=== PATIENT | male | born 1935 | race African-American/Black ===

== ENCOUNTER 2016-02-23 11:03 | Inpatient (IN) ==
--- NOTE | 2016-02-23 11:30 | Emergency Department Note ---
Disposition Clinical Impression: Syncope, Unresponsive episode Disposition: Admitted As Inpatient Condition: Good [facility] Care Provider[facility] - Forms: ED Satisfaction Letter Time of Disposition: 13:25 Syncope HPI - General Chief Complaint: ED Syncope Stated Complaint: Syncopal Episode Time Seen by Provider: 02/23/16 11:28 Source: patient, EMS Mode of arrival: EMS Limitations: no limitations Nursing Notes Reviewed: Yes Vital Signs Reviewed: Yes - History of Present Illness HPI Narrative: This is an 80-year-old male who was being seen at the [facility] and had a syncopal episode in the car. It apparently took about 3 people to get patient out of the car and he had shallow respirations and took a few minutes to come around. Patient is completely asymptomatic at this time. Patient denies any chest pain or shortness of breath. Patient apparently had a syncopal episode in the past. Patient has an extensive medical history. Patient did have a CT of his head and a chest x-ray performed at the [facility] that were negative. 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 - Related Data Home Medications Medication Instructions Recorded Confirmed Aspirin 81 mg PO DAILY #0 10/23/14 02/23/16 Cholecalciferol (Vitamin D3) 2,000 unit PO DAILY #0 10/23/14 02/23/16 [Vitamin D] Latanoprost [Xalatan] 1 drop BOTH EYES HS #0 10/23/14 02/23/16 Phenytoin ER [Dilantin ER] 100 mg PO BID #0 10/23/14 02/23/16 Ranitidine HCl [Acid Asphalt Paving Superintendent] 150 mg PO DAILY #0 10/23/14 02/23/16 Sennosides [Senna] 8.6 mg PO HS #0 10/23/14 02/23/16 Brimonidine 0.2% [Alphagan] 1 drop BOTH EYES BID 03/27/15 02/23/16 Ferrous Sulfate 325 mg PO DAILY 05/27/15 02/23/16 Acetaminophen [Tylenol] 975 mg PO TID PRN 02/23/16 02/23/16 Bisacodyl [Dulcolax] 10 mg RC Q48H PRN 02/23/16 02/23/16 Isosorbide MONOnitrate (24 HR) 45 mg PO DAILY 02/23/16 02/23/16 [Imdur] Levothyroxine [Synthroid] 37.5 mcg PO DAILY 02/23/16 02/23/16 Methyl Salicylate/Menthol 1 appl TP BID PRN 02/23/16 02/23/16 [Arthritis Hot Pain Relief Crm] Metoprolol XL (24 HR) Succ [Toprol 75 mg PO BID 02/23/16 02/23/16 XL] Simvastatin [Zocor] 20 mg PO HS 02/23/16 02/23/16 Previous Rx's Medication Instructions Recorded Clopidogrel [Plavix] 75 mg PO DAILY #30 tablet 05/30/15 Ranolazine [Ranexa] 500 mg PO BID #60 tab.er.12h 05/30/15 Allergies Allergy/AdvReac Type Severity Reaction Status Date / Time acetaminophen [From Vicodin] AdvReac Rash Verified 02/23/16 11:20 Enoxaparin [From Lovenox] AdvReac Confusion Verified 02/23/16 11:20 hydrocodone [From Vicodin] AdvReac Rash Verified 02/23/16 11:20 All systems ED: reviewed and negative except as stated. Constitutional: Denies: fever, chills, weakness, weight change Eyes: Denies: eye pain, eye discharge, vision change ENT ED: Denies: ear pain, throat pain, dental pain, hearing loss, epistaxis, congestion, dysphagia Cardiovascular: Reports: syncope. Denies: chest pain, palpitations, dyspnea on exertion, edema Respiratory: Denies: cough, dyspnea, wheezes, hemoptysis, stridor Gastrointestinal: Denies: abdominal pain, nausea, vomiting, diarrhea, constipation, hematemesis, melena, hematochezia Genitourinary: Denies: urgency, dysuria, frequency, hematuria Musculoskeletal: Denies: back pain, neck pain, arthralgia, myalgia Integumentary: Denies: rash, abrasion, lesions Neurological: Denies: headache, weakness, numbness, paresthesias, confusion, abnormal gait, vertigo Psychiatric: Denies: anxiety, depression, suicidal thoughts, homicidal thoughts , auditory hallucinations, visual hallucinations Endocrine: Denies: fatigue Hematological/Lymphatic: Denies: easy bleeding, easy bruising Allergic/Immunologic: Denies: facial swelling, urticaria Past Medical History - Past Medical History Attestation: Yes The following information was validated with the patient. Source: patient Medical history: Reports: CHF, coronary artery disease, DVT, diabetes, GERD, hyperlipidemia, seizures, thyroid disease Surgical history: Reports: orthopedic, other, other Psychiatric history: Reports: no psych history - Social History Smoking Status: Former smoker Smokeless Tobacco Status: No Alcohol use: Reports: none Drug use: Reports: none Physical Exam - General Limitations: no limitations General appearance: alert, in no apparent distress - Head Head exam: atraumatic, normocephalic, normal inspection - Eye Eye exam: Present: normal appearance, PERRL, EOMI - ENT ENT exam: normal exam, normal oropharynx, mucous membranes moist - Expanded ENT Exam External ear exam: Present: normal external inspection Mouth exam: Present: normal external inspection Teeth exam: Present: normal inspection Throat exam: Present: normal inspection - Neck Neck exam: Present: normal inspection, full ROM, trachea midline - Chest Chest inspection: Present: normal inspection, symmetric chest wall rise - Respiratory Respiratory exam: Present: normal lung sounds bilaterally - Cardiovascular Cardiovascular exam: Present: regular rate, normal rhythm, normal heart sounds - Abdominal Exam Abdominal exam: Present: soft, Non-Tender. Absent: tenderness, distention, guarding, rebound, rigidity - Extremities Exam Extremities exam: Present: normal inspection, full ROM. Absent: tenderness, pedal edema - Expanded Upper Extremity Exam Shoulder exam: Present: normal inspection, full ROM Arm exam: Present: normal inspection, full ROM Elbow exam: Present: normal inspection, full ROM Forearm/Wrist exam: Present: normal inspection, full ROM Hand exam: Present: normal inspection, full ROM Vascular exam: Normal: capillary refill, radial pulse - Expanded Lower Extremity Exam Hip/Pelvis exam: Present: normal inspection, full ROM Upper leg exam: Present: normal inspection, full ROM Knee exam: Present: normal inspection, full ROM Lower leg exam: Present: normal inspection, full ROM Ankle exam: Present: normal inspection, full ROM Foot/toe exam: Present: normal inspection, full ROM Neurovascular/Tendon exam: Absent: motor deficit, sensory deficit, tendon deficit - Back Exam Back exam: Present: normal inspection, full ROM. Absent: tenderness - Neurological Exam Neurological exam: Present: alert, oriented X3 - Expanded Neurological Exam Patient oriented to: Present: person, place, time Speech: Absent: fluid speech (pt does have a speech abnormality that is not new) Cranial nerves: EOM function (II, III, IV, ): Normal, facial sensation (V): Normal, facial palsy (VII): Normal, spinal accessory function (XI): Normal, tongue deviation (XII): Normal Motor strength - LUE: 5/5 Motor strength - RUE: 5/5 Motor strength - LLE: 5/5 Motor strength - RLE: 5/5 Sensory exam upper extremity: light touch: Normal Sensory exam lower extremity: light touch: Normal Coma Scale Eye Opening: Spontaneous Coma Scale Motor Response: Obeys Commands Coma Scale Verbal Response: Oriented Coma Scale Total: 15 - Psychiatric Psychiatric exam: Present: normal affect, normal mood - Skin Skin exam: Present: warm, dry, intact, normal color Course - Consultations Consultation #1: I spoke with Dr. Omar ruano to admit. Time: 13:51 Vital Signs Temperature 97.6 F 02/23/16 11:09 Pulse Rate 58 02/23/16 11:09 Respiratory Rate 16 02/23/16 11:09 Blood Pressure 137/92 02/23/16 11:09 O2 Sat by Pulse Oximetry 98 02/23/16 11:09 Temperature 97.6 F 02/23/16 11:09 Pulse Rate 54 02/23/16 12:22 Respiratory Rate 18 02/23/16 12:22 Blood Pressure 143/91 02/23/16 12:22 O2 Sat by Pulse Oximetry 100 02/23/16 12:22 Oxygen Delivery Oxygen Delivery Room Air Syncope - Medical Records Medical records reviewed: Yes I reviewed the patient's medical records. - Lab Data Lab results reviewed: Yes I reviewed the patient's lab results. Result diagrams: 02/23/16 11:55 02/23/16 11:55 Lab Results 02/23/16 02/23/16 02/23/16 Range/Units 11:55 11:55 11:55 WBC (4.3-11.1) K/mcL RBC (4.19-5.50) M/mcL Hgb (12.9-16.9) g/dL Hct (37.5-50.1) % MCV (83.0-100.0) fL MCH (28.0-33.3) pg MCHC (31.6-35.5) g/dL RDW (11.5-14.5) % Plt Count (140-400) K/mcL MPV (9.4-12.4) fL Immature Gran % (0-4) % Seg Neutrophils % % Lymphocytes % % Monocytes % % Eosinophils % % Basophils % % Neutrophils # (1.6-8.9) K/mcL Lymphocytes # (0.6-4.6) K/mcL Monocytes # (0.0-1.3) K/mcL Eosinophils # (0.0-0.6) K/mcL Basophils # (0.0-0.2) K/mcL PT (9.4-12.1) Seconds INR APTT 27.9 (26.0-36.0) Seconds Sodium 140 (136-145) mEq/L Potassium 4.6 H (3.5-4.5) mEq/L Chloride 106 (98-109) mEq/L Carbon Dioxide 29 (19-29) mEq/L BUN 22 (8-26) mg/dL Creatinine 1.37 H (0.72-1.25) mg/dL Est GFR ( Amer) > 60 (> 60) Est GFR (Non-Af Amer) 50 L (> 60) BUN/Creatinine Ratio 16 (6-26) Glucose 88 (70-99) mg/dL Calculated Osmolality 293 (280-300) Calcium 9.2 (8.6-10.8) mg/dL Troponin I (0-0.03) ng/mL B-Natriuretic Peptide 189 H (0-100) pg/mL TSH (0.350-4.840) mcIU/mL 02/23/16 02/23/16 02/23/16 Range/Units 11:55 11:55 11:55 WBC 7.9 (4.3-11.1) K/mcL RBC 4.03 L (4.19-5.50) M/mcL Hgb 11.9 L (12.9-16.9) g/dL Hct 36.7 L (37.5-50.1) % MCV 91.1 (83.0-100.0) fL MCH 29.5 (28.0-33.3) pg MCHC 32.4 (31.6-35.5) g/dL RDW 13.3 (11.5-14.5) % Plt Count 153 (140-400) K/mcL MPV 11.4 (9.4-12.4) fL Immature Gran % 0.3 (0-4) % Seg Neutrophils % 73.7 % Lymphocytes % 18.0 % Monocytes % 6.6 % Eosinophils % 1.1 % Basophils % 0.3 % Neutrophils # 5.9 (1.6-8.9) K/mcL Lymphocytes # 1.4 (0.6-4.6) K/mcL Monocytes # 0.5 (0.0-1.3) K/mcL Eosinophils # 0.1 (0.0-0.6) K/mcL Basophils # 0.0 (0.0-0.2) K/mcL PT 14.4 H (9.4-12.1) Seconds INR 1.3 APTT (26.0-36.0) Seconds Sodium (136-145) mEq/L Potassium (3.5-4.5) mEq/L Chloride (98-109) mEq/L Carbon Dioxide (19-29) mEq/L BUN (8-26) mg/dL Creatinine (0.72-1.25) mg/dL Est GFR ( Amer) (> 60) Est GFR (Non-Af Amer) (> 60) BUN/Creatinine Ratio (6-26) Glucose (70-99) mg/dL Calculated Osmolality (280-300) Calcium (8.6-10.8) mg/dL Troponin I 0.01 (0-0.03) ng/mL B-Natriuretic Peptide (0-100) pg/mL TSH (0.350-4.840) mcIU/mL 02/23/16 Range/Units 11:55 WBC (4.3-11.1) K/mcL RBC (4.19-5.50) M/mcL Hgb (12.9-16.9) g/dL Hct (37.5-50.1) % MCV (83.0-100.0) fL MCH (28.0-33.3) pg MCHC (31.6-35.5) g/dL RDW (11.5-14.5) % Plt Count (140-400) K/mcL MPV (9.4-12.4) fL Immature Gran % (0-4) % Seg Neutrophils % % Lymphocytes % % Monocytes % % Eosinophils % % Basophils % % Neutrophils # (1.6-8.9) K/mcL Lymphocytes # (0.6-4.6) K/mcL Monocytes # (0.0-1.3) K/mcL Eosinophils # (0.0-0.6) K/mcL Basophils # (0.0-0.2) K/mcL PT (9.4-12.1) Seconds INR APTT (26.0-36.0) Seconds Sodium (136-145) mEq/L Potassium (3.5-4.5) mEq/L Chloride (98-109) mEq/L Carbon Dioxide (19-29) mEq/L BUN (8-26) mg/dL Creatinine (0.72-1.25) mg/dL Est GFR ( Amer) (> 60) Est GFR (Non-Af Amer) (> 60) BUN/Creatinine Ratio (6-26) Glucose (70-99) mg/dL Calculated Osmolality (280-300) Calcium (8.6-10.8) mg/dL Troponin I (0-0.03) ng/mL B-Natriuretic Peptide (0-100) pg/mL TSH 4.464 (0.350-4.840) mcIU/mL - Radiology Data Radiology results reviewed: Yes I reviewed the patient's radiology results. - EKG Data EKG attestation: Yes I reviewed and interpreted this EKG. EKG shows normal: sinus rhythm Rate: bradycardia (56) Rhythm: NSR [place]/QRS: left axis deviation T wave inversions noted in: v4, v5, v6 Interpretation: nonspecific ST-T wave changes
[2016-02-23 12:06] LABS: Basophils % 0.3 %; Eosinophils # 0.1 K/mcL (0.0-0.6); Eosinophils % 1.1 %; Hematocrit 36.7 % (37.5-50.1); Hemoglobin 11.9 g/dL (12.9-16.9); Immature Granulocytes % 0.3 % (0-4); Lymphocytes # 1.4 K/mcL (0.6-4.6); Mean Corpuscular HGB Conc 32.4 g/dL (31.6-35.5); Mean Corpuscular Hemoglobin 29.5 pg (28.0-33.3); Mean Corpuscular Volume 91.1 fL (83.0-100.0); Mean Platelet Volume 11.4 fL (9.4-12.4); Monocytes # 0.5 K/mcL (0.0-1.3); Monocytes % 6.6 %; Neutrophils # 5.9 K/mcL (1.6-8.9); Platelet Count 153 K/mcL (140-400); Red Blood Count 4.03 M/mcL (4.19-5.50); Red Cell Distribution Width 13.3 % (11.5-14.5); Segmented Neutrophils % 73.7 %
[2016-02-23 12:12] LABS: INR 1.3; Prothrombin Time 14.4 Seconds (9.4-12.1)
[2016-02-23 12:18] LABS: BUN/Creatinine Ratio 16 (6-26); Blood Urea Nitrogen 22 mg/dL (8-26); Calcium 9.2 mg/dL (8.6-10.8); Carbon Dioxide 29 mEq/L (19-29); Chloride 106 mEq/L (98-109); Glucose 88 mg/dL (70-99); Osmolality,Calculated 293 (280-300); Potassium 4.6 mEq/L (3.5-4.5); Sodium 140 mEq/L (136-145); eGFR For African Americans > 60 (> 60); eGFR For Non-African Americans 50 (> 60)
[2016-02-23] MEDS ORDERED: Ondansetron 4 MG/2 ML VIAL IVP PRN (15:17)
[2016-02-23] MEDS ORDERED: *HR* Dextrose 50 % in Water (Syg) 50 ML SYRINGE IVP PRN (15:17)
[2016-02-23] MEDS ORDERED: Dextrose Gel 15 GM PO PRN ×2 (15:17)
[2016-02-23] MEDS ORDERED: D5% in Water 1,000 ML IV PRN (15:17)
[2016-02-23] MEDS ORDERED: Naloxone 0.4 MG/ML INJ IVP PRN (15:17)
[2016-02-23] MEDS ORDERED: Methyl Salicylate/Menthol 28 GM TUBE TP PRN (15:24)
[2016-02-23] MEDS ORDERED: Acetaminophen 325 MG TABLET PO PRN (15:24)
[2016-02-23] MEDS ORDERED: Bisacodyl 10 MG RECTAL SUPPOSITORY RC PRN (15:24)
[2016-02-23] MEDS ORDERED: Sennosides/Docusate Sodium TABLET PO PRN (15:27)
[2016-02-23 15:29] LABS: Bilirubin,Urine Small (Negative); Blood,Urine Negative (Negative); Clarity,Urine Clear (Clear); Color,Urine Yellow (Yellow); Glucose,Urine (UA) Normal (Normal); Ketones,Urine Trace mg/dL (Negative); Leukocyte Esterase,Urine Negative (Negative); Nitrite,Urine Negative (Negative); Protein,Urine Trace mg/dL (Neg-Trace); Specific Gravity,Urine 1.024 (1.010-1.025); Urobilinogen,Urine Normal (Normal)
[2016-02-23 15:34] LABS: Bacteria,Urine None Seen per hpf (None-Few); Hyaline Casts,Urine None Seen per lpf (None-Few); RBC,Urine 0-3 per hpf (0-3); Squamous Epithelial Cell,Urine Many per lpf (None-Few); WBC,Urine 0-3 per hpf (0-3)
--- NOTE | 2016-02-23 15:40 | Internal Med History&Physical ---
<Artem Kennedy - Last Filed: 02/23/16 15:28> Date of Encounter: 02/23/16 Time of Encounter: 14:45 Assessment and Plan (1) Syncope Current visit: Yes Status: Acute [facility]. No reports of convulsions, incontinence, tongue biting, or postictal state. Patient has no reports of recent illness, no shortness of breath, no chest pain, no palpitations. Irregular rhythm/skipped beats auscultated on exam. Concern for cardiac etiology of patient's syncope. Obtain bilateral carotid Doppler Obtain echocardiogram Continue telemetry We will check magnesium Continue home medications Qualifiers: Syncope type: unspecified Qualified Code(s): R55 - Syncope and collapse (2) Seizure disorder Current visit: No Status: Chronic Reported prior episode of seizure. Family states involved him having CPR, unsure of the significance of this event. Patient on phenytoin at home. Continue phenytoin (3) Diabetes type 2, controlled Current visit: Yes Status: Acute Before meals at bedtime sliding scale low-dose insulin Qualifiers: Diabetes mellitus complication status: without complication Diabetes mellitus exterminator termite insulin use: without fdc use Qualified Code(s): E11.9 - Type 2 diabetes mellitus without complications (4) History of cerebrovascular accident Current visit: Yes Status: Acute Residual left-sided leg weakness. No current signs of CVA. We will continue to monitor (5) CAD (coronary artery disease) Current visit: No Status: Acute Continue home medications Qualifiers: Coronary Disease-Associated Artery/Lesion type: [place] artery [place] vs. transplanted heart: [place] heart Associated angina: with unspecified angina Qualified Code(s): I25.119 - Atherosclerotic heart disease of [place] coronary artery with unspecified angina pectoris (6) GERD (gastroesophageal reflux disease) Current visit: Yes Status: Acute Patient on ranitidine at home Continue home medication Qualifiers: Esophagitis presence: without esophagitis Qualified Code(s): K21.9 - Gastro -esophageal reflux disease without esophagitis (7) Hypothyroidism Current visit: Yes Status: Acute Continue home medication Qualifiers: Hypothyroidism type: unspecified Qualified Code(s): E03.9 - Hypothyroidism , unspecified (8) Hypertension Current visit: No Status: Chronic We will hold patient's metoprolol 2/2 patient bradycardia Continue other home meds Continue monitor Qualifiers: Hypertension type: essential hypertension Qualified Code(s): I10 - Essential (primary) hypertension (9) DVT prophylaxis Current visit: No Status: Acute EPCDs Internal Medicine - H&P: HPI Chief complaint: Syncope Admitted From: Home Plans for Post Hospital Care: Home History of present illness: Mr. Lewis is a 80 year old male with prior medical history of peripheral neuropathy, prior CVA, open-angle glaucoma, GERD, seizure disorder, CAD, osteoporosis, type 2 diabetes, and benign hypertension with history Hannah after having an episode of unresponsiveness at the [facility] earlier today. He was in the vehicle outside the [facility] going to a doctor's appointment with a friend of his when he had an episode of apparent syncope. There is no report of convulsive movements, no report of incontinence, no tongue biting, patient does not report any post ictal state. An well prior to this event, but no recent reports of illness. He denies chest pain, denies palpitations, denies shortness of breath leading up to this event today. He is reported to have a seizure disorder for which he takes phenytoin, but she quit the family they report that the one prior seizure she had resulted in him getting CPR, never not able to elaborate more on this. Both he and his family state that this has occurred 4-5 times in the past, most recent of which was last November and December, and every time he is worked up for no cause is identified. Past Med Surg Social Fam HX - Past Medical History Medical history: CHF, coronary artery disease, DVT, diabetes, GERD, hyperlipidemia, seizures, thyroid disease Psychiatric history: no psych history - Past Surgical History Surgical History: orthopedic, other, other - Social History Smoking Status: Former smoker Smokeless Tobacco Status: No Alcohol use: none Drug use: none - Family History Father Living Status: Mother Living Status: Hx Family Cancer: Yes Internal Medicine - H&P: Meds Aspirin 81 mg PO DAILY #0 10/23/14 [History] Cholecalciferol (Vitamin D3) [Vitamin D] 2,000 unit PO DAILY #0 10/23/14 [ History] Latanoprost [Xalatan] 1 drop BOTH EYES HS #0 10/23/14 [History] Phenytoin ER [Dilantin ER] 100 mg PO BID #0 10/23/14 [History] Ranitidine HCl [Acid Shipping Track Supervisor] 150 mg PO DAILY #0 10/23/14 [History] Sennosides [Senna] 8.6 mg PO HS #0 10/23/14 [History] Brimonidine 0.2% [Alphagan] 1 drop BOTH EYES BID 03/27/15 [History] Ferrous Sulfate 325 mg PO DAILY 05/27/15 [History] Clopidogrel [Plavix] 75 mg PO DAILY #30 tablet 05/30/15 [Rx] Ranolazine [Ranexa] 500 mg PO BID #60 tab.er.12h 05/30/15 [Rx] Acetaminophen [Tylenol] 975 mg PO TID PRN 02/23/16 [History] Bisacodyl [Dulcolax] 10 mg RC Q48H PRN 02/23/16 [History] Isosorbide MONOnitrate (24 HR) [Imdur] 45 mg PO DAILY 02/23/16 [History] Levothyroxine [Synthroid] 37.5 mcg PO DAILY 02/23/16 [History] Methyl Salicylate/Menthol [Arthritis Hot Pain Relief Crm] 1 appl TP BID PRN 08/03 [History] Metoprolol XL (24 HR) Succ [Toprol XL] 75 mg PO BID 02/23/16 [History] Simvastatin [Zocor] 20 mg PO HS 02/23/16 [History] Allergies acetaminophen [From Vicodin] Adverse Reaction (Verified 02/23/16 11:20) Rash Enoxaparin [From Lovenox] Adverse Reaction (Verified 02/23/16 11:20) Confusion hydrocodone [From Vicodin] Adverse Reaction (Verified 02/23/16 11:20) Rash All Systems PM: A 10-system review of systems was performed and is negative for pertinent findings except as documented above in the HPI. - Constitutional Constitutional: no chills, no fever(s), no night sweats - EENT Eyes: no change in vision, no discharge, no pain, no photophobia Nose, mouth and throat: no dysphagia, no nasal discharge, no neck pain, no sore throat - Cardiovascular Cardiovascular ROS IM: syncope, no chest pain, no diaphoresis, no dyspnea, no irregular heart rhythm, no lightheadedness, no palpitations - Respiratory Respiratory: no cough, no dyspnea, no wheezing, no excessive phlegm production - Gastrointestinal Gastrointestinal: no abdominal pain, no diarrhea, no hematemesis, no hematochezia, no melena, no nausea, no vomiting - Musculoskeletal Musculoskeletal ROS IM: other (Pain in left lower extremity), no numbness, no tingling - Integumentary Integumentary IM: no rash, no unusual bruising - Neurological Neurological ROS: weakness (In left lower extremity), no confusion, no convulsions, no focal weakness, no numbness, no tingling, no tremor(s) - Hematologic/Lymphatic Hematologic/Lymphatic: no easy bruising - Constitutional Vitals: Temp Pulse Resp BP Pulse Ox 97.6 F 87 16 153/101 97 02/23/16 11:09 02/23/16 14:08 02/23/16 14:40 02/23/16 14:40 02/23/16 14:08 General appearance: Present: cooperative, A&O X 3, pleasant, no acute distress, answers questions appropriately - Head Head exam: Present: atraumatic, normocephalic - Eye Eye exam: Present: PERRL, conjuntiva pink, sclera anicteric Pupils: Present: PERRL - Neck Neck exam general surgery: Present: supple, trachea midline - Respiratory Respiratory exam: Present: CTAB. Absent: accessory muscle use, rales, rhonchi, wheezes - Cardiovascular Cardiovascular exam: Present: RRR, +S1, +S2. Absent: diastolic murmur, gallop, rubs, systolic murmur - GI/Abdominal GI/Abdominal exam: Present: normal bowel sounds, soft, no peritoneal signs. Absent: distended, tenderness - Extremities Exam Extremities exam: Present: warm, radial pulses palpable and symetrical. Absent : calf tenderness, cyanotic, pedal edema - Neurological Exam Neurological exam: Present: alert, CN II-XII intact, oriented X3, no focal deficits. Absent: facial droop, speech deficit - Skin Skin exam: Present: dry, intact Internal Med - H&P Results - Labs CBC & Chem 7: 02/23/16 11:55 02/23/16 11:55 <Blayne Shah - Last Filed: 02/23/16 18:21> Date of Encounter: 02/23/16 Internal Medicine - H&P: HPI History of present illness: Mr. Lewis is a 80 year old male All Systems PM: A 10-system review of systems was performed and is negative for pertinent findings except as documented above in the HPI. - Constitutional Vitals: Temp Pulse Resp BP Pulse Ox 97.6 F 58 16 161/71 100 02/23/16 16:37 02/23/16 16:37 02/23/16 16:37 02/23/16 16:37 02/23/16 16:37 Internal Med - H&P Results - Labs CBC & Chem 7: 02/23/16 11:55 02/23/16 11:55 Labs: Cardiac Enzymes 02/23/16 Range/Units 15:50 Troponin I 0.00 (0-0.03) ng/mL - Attending Attestation I examined this patient and my medical decision-making was reviewed with the LOCKSTITCHER/PA/Advanced Practice Nurse/Resident Physician. I agree with the documented findings, disposition and treatment plan as described by Dr. Kennedy except to the extent set forth below. Admitted due to syncope, will monitor in telemetry and obtain an echo. Resume home meds. D/W patient.
[2016-02-23 16:56] LABS: Amphetamine Screen,Urine Negative ng/mL (Cutoff=1000); Barbiturate Screen,Urine Negative ng/mL (Cutoff=200); Benzodiazepines Screen,Urine Negative ng/mL (Cutoff=200); Cannabinoid Screen,Urine Negative ng/mL (Cutoff = 50); Cocaine Screen,Urine Negative ng/mL (Cutoff= 300); Opiate Screen,Urine Negative ng/mL (Cutoff=300); Phencyclidine Screen,Urine Negative ng/mL (Cutoff=25)
[2016-02-23] MEDS: Insulin LISPRO 300 UNITS/3 ML VIAL SQ SCH ×2 (17:46→21:08)
[2016-02-23] MEDS: Ranolazine 500 MG TAB.ER.12H PO SCH (21:08)
[2016-02-23] MEDS: Latanoprost 2.5 ML BOTTLE BOTH EYES SCH (21:09)
[2016-02-24 04:22] LABS: Basophils % 0.6 %; Eosinophils # 0.2 K/mcL (0.0-0.6); Eosinophils % 3.3 %; Hematocrit 34.9 % (37.5-50.1); Hemoglobin 11.7 g/dL (12.9-16.9); Immature Granulocytes % 0.1 % (0-4); Lymphocytes # 2.4 K/mcL (0.6-4.6); Mean Corpuscular HGB Conc 33.5 g/dL (31.6-35.5); Mean Corpuscular Hemoglobin 30.2 pg (28.0-33.3); Mean Corpuscular Volume 89.9 fL (83.0-100.0); Mean Platelet Volume 11.6 fL (9.4-12.4); Monocytes # 0.6 K/mcL (0.0-1.3); Monocytes % 8.6 %; Neutrophils # 3.9 K/mcL (1.6-8.9); Platelet Count 142 K/mcL (140-400); Red Blood Count 3.88 M/mcL (4.19-5.50); Red Cell Distribution Width 13.3 % (11.5-14.5); Segmented Neutrophils % 54.4 %
[2016-02-24 04:39] LABS: Calcium 8.7 mg/dL (8.6-10.8); Magnesium 1.9 mg/dL (1.6-2.6); Phosphorous 3.6 mg/dL (2.3-4.7); Potassium 4.3 mEq/L (3.5-4.5)
[2016-02-24] MEDS: Insulin LISPRO 300 UNITS/3 ML VIAL SQ SCH ×4 (08:17→20:21)
[2016-02-24] MEDS: Levothyroxine 25 MCG TABLET PO SCH (08:22)
[2016-02-24] MEDS: Aspirin 81 MG TAB.CHEW PO SCH (08:22)
[2016-02-24] MEDS: Ranolazine 500 MG TAB.ER.12H PO SCH ×2 (08:23→20:29)
[2016-02-24] MEDS: Cholecalciferol (D-3) 1,000 UNIT TABLET PO SCH (08:23)
[2016-02-24] MEDS: Isosorbide MONOnitrate (24 HR) 30 MG TAB.ER.24H PO SCH (08:23)
[2016-02-24] MEDS ORDERED: Pantoprazole 40 MG VIAL IVP SCH (09:00)
--- NOTE | 2016-02-24 09:21 | ECHO - Doppler Report ---
Echocardiogram Name: Rodrigo Lewis Date of Study: 02/23/2016 Date: 1935 Ht: 71.0 in Medical Record#: [id number] Age: 80 Wt: 175.0 lb Gender: Male BSA: 1.99 Order #: [id number] Location: [facility] Room #: [id number] Reading Physician: Adele Hernandez DO Canary Breeder: Marlin Ybarra Ordering Physician: Artem Kennedy DO Primary Physician: [facility] Indications: Syncopal episode Impressions: Technically challenging study. The LV endocardial border/wall thickening and regional segments were not well visualized. Recommend repeat Limited study with Definity for evaluation of LV function. Mild LV diastolic dysfunction. Normal right ventricular size and function. Mild aortic regurgitation. No pulmonary hypertension. Left Ventricular Wall Motion: Rest Echo Findings The apex, apical inferior, mid inferior, basal inferior, apical septal, mid inferior septal, basal inferior septal, apical lateral, mid anterior lateral, basal anterior lateral, mid anterior septal, mid inferior lateral, basal anterior septal and basal inferior lateral patel were hypokinetic. The apical anterior, mid anterior and basal anterior patel were not visualized. Findings: ECG Findings * Normal sinus rhythm. Aortic Valve * Mild aortic regurgitation. * Aortic valve not well visualized with mild calcification. Leaflet morphology not well visualized. Echo 10/29/2011 documents a trileaflet valve. * No aortic stenosis. Mitral Valve * Normal mitral valve structure. * No mitral regurgitation. * No mitral stenosis. * Mild mitral annular calcification Tricuspid Valve * Tricuspid valve not well visualized. * No tricuspid regurgitation. Pulmonic Valve * Pulmonic valve is not well visualized. * No pulmonic stenosis. * Trace pulmonic regurgitation. Pulmonary Artery * Pulmonary artery not well visualized. Right Ventricle * Normal right ventricular structure and function. Left Ventricle * Mild left ventricular diastolic dysfunction. * Unable to quantify LVEF. * LV size and wall thickness appear normal. Left Atrium * Normal left atrial size. Right Atrium * Normal right atrial size. Interatrial Septum * Interatrial septum not well evaluated. Pericardium * There is no pericardial effusion present. IVC * The IVC is not well evaluated. Aorta * Normally sized aortic root. Study Quality * Technically sub-optimal due to poor echocardiographic windows. History Hypertension Diabetes Hypercholesteremia Family History of CAD History of CAD/PTCA Myocardial Infarction Congestive Heart Failure 10/29/2011 a Previous Echo was performed. Measurements: BP: 161/ 71 2D Normal Values IVSd: 1.40 cm 0.6 - 1.0 cm LVIDd: 3.90 cm 3.7 - 5.6 cm LVPWd: 1.20 cm 0.6 - 1.1 cm LVIDs: 3.10 cm 1.5 - 3.6 cm AO: 3.00 cm < 4.0 cm LA: 4.20 cm 2.0 - 4.0cm %FS: 20.50 cm >25 % LA volume: 52 Mitral Valve Peak E:.58 m/sec Peak A:.94 m/sec E/A Ratio:0.6 Peak E' Lat Blas:8.97 cm/s Peak E' Med Blas:5.26 cm/s E/E' Lat Ratio:6.5 E/E' Med Ratio:11.1 Tricuspid Valve TV Regurg Peak Grad: 12.00mmHg TV Regurg Peak Blas: 1.75m/sec Updated by Adele Hernandez on 02/24/2016 9:12:48 AM electronically signed on 02/24/2016 9:17:09 AM with status of Final Wall Motion [place]: 1=Normal, 2=Hypokinesis, 3=Akinesis, 4=Dyskinesis, 5=Aneurysmal, 6=Hyperkinetic, X=Not Visualized (Blank)=Missing
--- NOTE | 2016-02-24 09:52 | Internal Med Progress Note ---
<Artem Kennedy - Last Filed: 02/24/16 11:02> Date of Encounter: 02/24/16 Time of Encounter: 07:50 - Assessment and plan (1) Syncope Current Visit: Yes Status: Acute Assessment and plan: [facility]. No reports of convulsions, incontinence , tongue biting, or postictal state. Patient has no reports of recent illness, shortness of breath, chest pain, or palpitations. Skipped beats auscultated on exam, telemetry consistent with frequent PVCs. Concern for cardiac etiology of patient's syncope. Echocardiogram initially done was a challenging study, EF could not be estimated, but mild diastolic dysfunction seen with mild aortic regurgitation. Magnesium normal. Bilateral carotid Dopplers performed, waiting on results Continue telemetry Will reintroduce patient metoprolol, with decreased dosage given concern of bradycardia at admission Continue home medications Qualifiers: Syncope type: unspecified Qualified Code(s): R55 - Syncope and collapse (2) Seizure disorder Current Visit: No Status: Chronic Assessment and plan: Reported prior episode of seizure. Family states involved him having CPR, unsure of the significance of this event. Patient on phenytoin at home. Continue phenytoin (3) Diabetes type 2, controlled Current Visit: Yes Status: Acute Assessment and plan: Before meals at bedtime sliding scale low-dose insulin Qualifiers: Diabetes mellitus complication status: without complication Diabetes mellitus terminal press operator insulin use: without terminal press operator use Qualified Code(s): E11.9 - Type 2 diabetes mellitus without complications (4) History of cerebrovascular accident Current Visit: Yes Status: Acute Assessment and plan: Residual left-sided leg weakness. No current signs of CVA. We will continue to monitor (5) CAD (coronary artery disease) Current Visit: No Status: Acute Assessment and plan: Continue home medications Qualifiers: Coronary Disease-Associated Artery/Lesion type: [place] artery [place] vs. transplanted heart: [place] heart Associated angina: with unspecified angina Qualified Code(s): I25.119 - Atherosclerotic heart disease of [place] coronary artery with unspecified angina pectoris (6) GERD (gastroesophageal reflux disease) Current Visit: Yes Status: Acute Assessment and plan: Continue home medication (ranitidine) Qualifiers: Esophagitis presence: without esophagitis Qualified Code(s): K21.9 - Gastro -esophageal reflux disease without esophagitis (7) Hypothyroidism Current Visit: Yes Status: Acute Assessment and plan: Continue home medication Qualifiers: Hypothyroidism type: unspecified Qualified Code(s): E03.9 - Hypothyroidism , unspecified (8) Hypertension Current Visit: No Status: Chronic Assessment and plan: Patient previously taking metoprolol succinate (hogshead salvage release) 75 mg twice a day. We will change this to 100 mg in the morning Continue other home meds Continue monitor Qualifiers: Hypertension type: essential hypertension Qualified Code(s): I10 - Essential (primary) hypertension (9) DVT prophylaxis Current Visit: No Status: Acute Assessment and plan: EPCDs - Subjective Interval history: Patient reports doing well, no concerns/complaints. He is resting comfortably lying down in bed. No reports of chest pain, headaches, changes in vision, shortness of breath, palpitations, abdominal pain, nausea or vomiting. - Constitutional Vitals: Temp Pulse Resp BP Pulse Ox 97.7 F 93 17 152/69 98 02/24/16 07:56 02/24/16 07:56 02/24/16 07:56 02/24/16 07:56 02/24/16 07:56 General appearance: Present: cooperative, A&O X 3, pleasant, no acute distress, answers questions appropriately Exam: General: Cooperative, pleasant, no acute distress, alert and oriented 3, answers questions appropriately Head: Normocephalic, atraumatic Eye: Conjunctiva pink, sclera anicteric, EOMI, PERRL Neck: Supple, trachea midline Respiratory: No accessory muscle usage, clear to auscultation bilaterally, no wheezes/rhonchi/rales appreciated Cardiovascular: Regular rate and rhythm, S1 and S2 present, no murmurs/rubs/ gallops/clicks appreciated GI/abdominal: Nondistended, nontender, soft, normal bowel sounds, no peritoneal signs Extremities: No calf tenderness, noncyanotic, no pedal edema appreciated, warm, lower extremity pulses palpable and symmetrical Neurological: Alert and oriented 3, no facial droop,deficits, no focal deficits Internal Medicine: Result - Labs CBC & Chem 7: 02/24/16 04:04 02/24/16 04:04 Labs: Short CBC 02/24/16 Range/Units 04:04 WBC 7.2 (4.3-11.1) K/mcL Hgb 11.7 L (12.9-16.9) g/dL Hct 34.9 L (37.5-50.1) % Plt Count 142 (140-400) K/mcL Neutrophils # 3.9 (1.6-8.9) K/mcL [facility] 02/24/16 04:04 Sodium 138 Potassium 4.3 Chloride 106 Carbon Dioxide 28 BUN 24 Creatinine 1.48 H Glucose 88 Calcium 8.7 Cardiac Enzymes 02/23/16 02/23/16 Range/Units 15:50 21:46 Troponin I 0.00 0.01 (0-0.03) ng/mL - ABG Interpretation ABG results: PT/INR, D-dimer PT 14.4 Seconds (9.4-12.1) H 02/23/16 11:55 - VTE Documentation of Mechanical Device: Intermittent pneumatic compression device Consult Discharge Plan - Plan [facility]errals: [facility] Care Provider[facility] - <Blayne Shah - Last Filed: 02/24/16 17:40> Date of Encounter: 02/24/16 - Constitutional Vitals: Temp Pulse Resp BP Pulse Ox 98.1 F 73 18 115/62 98 02/24/16 15:36 02/24/16 15:36 02/24/16 15:36 02/24/16 15:36 02/24/16 15:36 Internal Medicine: Result - Labs CBC & Chem 7: 02/24/16 04:04 02/24/16 04:04 Labs: Short CBC 02/24/16 Range/Units 04:04 WBC 7.2 (4.3-11.1) K/mcL Hgb 11.7 L (12.9-16.9) g/dL Hct 34.9 L (37.5-50.1) % Plt Count 142 (140-400) K/mcL Neutrophils # 3.9 (1.6-8.9) K/mcL [facility] 02/24/16 04:04 Sodium 138 Potassium 4.3 Chloride 106 Carbon Dioxide 28 BUN 24 Creatinine 1.48 H Glucose 88 Calcium 8.7 Cardiac Enzymes 02/23/16 Range/Units 21:46 Troponin I 0.01 (0-0.03) ng/mL - ABG Interpretation ABG results: PT/INR, D-dimer PT 14.4 Seconds (9.4-12.1) H 02/23/16 11:55 - Attending Attestation I examined this patient and my medical decision-making was reviewed with the TUNNEL MUCKER/PA/Advanced Practice Nurse/Resident Physician. I agree with the documented findings, disposition and treatment plan as described except to the extent set forth below. Admitted due to syncope. Monitor in telemetry. D/W patient.
[2016-02-24] MEDS ORDERED: Metoprolol XL (24 HR) Succ 50 MG TAB.ER.24H PO SCH ×2 (11:15→12:21)
--- NOTE | 2016-02-24 11:51 | Carotid Imaging Report ---
Carotid Duplex Patient Name:Rodrigo Lewis Order Number:[id number] Procedure Date:02/23/2016 Date:1935ge:80 yrs Gender:Male Lt BP:161 / 71 mmHg Rt.BP:161 / 71 mmHgHeart Rate: Location:[facility] Room #: 3B41 Concierge Manager:Marlin Ybarra Referring MD:Artem Kennedy DO survey interviewer:[facility] Reading MD:Keron Clark MD Primary Indications:Syncopal episode Risk Factors Yes/No Hypertension Hypercholesterolemia Diabetes Hx of CVA Smoker Previous Impressions: Findings: Bilateral carotid system has nonstenotic plaque. Findings Carotid Duplex: Right: There is nonstenotic plaque in the right bifurcation. There is smooth heterogeneous plaque. There is nonstenotic plaque in the right proximal internal carotid artery. There is irregular heterogeneous plaque. Left: There is nonstenotic plaque in the left proximal internal carotid artery. There is smooth heterogeneous plaque. There is nonstenotic plaque in the left eca. Carotid Results Right PSV EDV Assessment Proximal CCA 48 9 Normal Mid CCA 48 9 Normal Distal CCA 49 11 Normal Bifurcation 43 10 Non Stenotic Plaque Proximal ICA 43 9 Non Stenotic Plaque Mid ICA 55 11 Normal Distal ICA 99 28 Normal ECA 59 0 Normal Vertebral Artery 34 8 Antegrade Flow Left PSV EDV Assessment Proximal CCA 73 9 Normal Mid CCA 64 9 Normal Distal CCA 52 11 Normal Bifurcation 41 7 Normal Proximal ICA 38 9 Non Stenotic Plaque Mid ICA 74 18 Normal Distal ICA 81 21 Normal ECA 66 1 Non Stenotic Plaque Vertebral Artery 25 6 Antegrade Flow Ratio's Right ICA/CCA Ratio: 2.06 ICA/CCA Values: 99/48 Left ICA/CCA Ratio: 1.27 ICA/CCA Values: 81/64 Updated by Keron Clark MD on 02/24/2016 11:44:42 AM electronically signed on 02/24/2016 11:44:58 AM with status of Final
[2016-02-24] MEDS: Latanoprost 2.5 ML BOTTLE BOTH EYES SCH (20:31)
[2016-02-25 03:10] LABS: Basophils % 0.4 %; Eosinophils # 0.2 K/mcL (0.0-0.6); Eosinophils % 2.8 %; Hematocrit 33.8 % (37.5-50.1); Hemoglobin 11.1 g/dL (12.9-16.9); Immature Granulocytes % 0.6 % (0-4); Immature Platelets 6.2 % (1.1-6.1); Lymphocytes # 2.2 K/mcL (0.6-4.6); Lymphocytes % 33.1 %; Mean Corpuscular HGB Conc 32.8 g/dL (31.6-35.5); Mean Corpuscular Hemoglobin 29.8 pg (28.0-33.3); Mean Corpuscular Volume 90.6 fL (83.0-100.0); Mean Platelet Volume 11.4 fL (9.4-12.4); Monocytes # 0.6 K/mcL (0.0-1.3); Monocytes % 9.5 %; Neutrophils # 3.6 K/mcL (1.6-8.9); Platelet Count 139 K/mcL (140-400); Red Blood Count 3.73 M/mcL (4.19-5.50); Red Cell Distribution Width 13.5 % (11.5-14.5); Segmented Neutrophils % 53.6 %
[2016-02-25 03:27] LABS: Calcium 8.5 mg/dL (8.6-10.8); Magnesium 1.9 mg/dL (1.6-2.6); Potassium 4.4 mEq/L (3.5-4.5)
[2016-02-25 10:51] VITALS: BP 133/71
[2016-02-25] MEDS: Cholecalciferol (D-3) 1,000 UNIT TABLET PO SCH (11:12)
[2016-02-25] MEDS: Isosorbide MONOnitrate (24 HR) 30 MG TAB.ER.24H PO SCH (11:13)
[2016-02-25] MEDS: Ranolazine 500 MG TAB.ER.12H PO SCH (11:14)
[2016-02-25] MEDS: Levothyroxine 25 MCG TABLET PO SCH (11:15)
[2016-02-25] MEDS: Insulin LISPRO 300 UNITS/3 ML VIAL SQ SCH ×2 (11:15→11:20)
[2016-02-25] MEDS: Aspirin 81 MG TAB.CHEW PO SCH (11:15)
--- NOTE | 2016-02-25 12:14 | Discharge Summary ---
<Artem Kennedy - Last Filed: 02/25/16 12:11> Date of Encounter: 02/25/16 Time of Encounter: 07:20 - Discharge Diagnosis (1) Syncope Priority: Primary Status: Acute Qualifiers: Syncope type: unspecified Qualified Code(s): R55 - Syncope and collapse (2) Seizure disorder Priority: Secondary Status: Chronic (3) Diabetes type 2, controlled Priority: Primary Status: Acute Qualifiers: Diabetes mellitus complication status: without complication Diabetes mellitus chcf insulin use: without chcf use Qualified Code(s): E11.9 - Type 2 diabetes mellitus without complications (4) History of cerebrovascular accident Priority: Secondary Status: Acute (5) CAD (coronary artery disease) Priority: Secondary Status: Acute Qualifiers: Coronary Disease-Associated Artery/Lesion type: [place] artery [place] vs. transplanted heart: [place] heart Associated angina: with unspecified angina Qualified Code(s): I25.119 - Atherosclerotic heart disease of [place] coronary artery with unspecified angina pectoris (6) GERD (gastroesophageal reflux disease) Priority: Secondary Status: Acute Qualifiers: Esophagitis presence: without esophagitis Qualified Code(s): K21.9 - Gastro -esophageal reflux disease without esophagitis (7) Hypothyroidism Priority: Secondary Status: Acute Qualifiers: Hypothyroidism type: unspecified Qualified Code(s): E03.9 - Hypothyroidism , unspecified (8) Hypertension Priority: Secondary Status: Chronic Qualifiers: Hypertension type: essential hypertension Qualified Code(s): I10 - Essential (primary) hypertension (9) DVT prophylaxis Priority: Secondary Status: Acute - Discharge Medications Prescriptions: Metoprolol XL (24 HR) Succ [Toprol Xl] 50 mg PO DAILY #30 tab.er.24h Home Medications: Aspirin 81 mg PO DAILY #0 10/23/14 [History] Cholecalciferol (Vitamin D3) [Vitamin D] 2,000 unit PO DAILY #0 10/23/14 [ History] Latanoprost [Xalatan] 1 drop BOTH EYES HS #0 10/23/14 [History] Phenytoin ER [Dilantin ER] 100 mg PO BID #0 10/23/14 [History] Ranitidine HCl [Acid Special Warfare Operator] 150 mg PO DAILY #0 10/23/14 [History] Sennosides [Senna] 8.6 mg PO HS #0 10/23/14 [History] Brimonidine 0.2% [Alphagan] 1 drop BOTH EYES BID 03/27/15 [History] Ferrous Sulfate 325 mg PO DAILY 05/27/15 [History] Clopidogrel [Plavix] 75 mg PO DAILY #30 tablet 05/30/15 [Rx] Ranolazine [Ranexa] 500 mg PO BID #60 tab.er.12h 05/30/15 [Rx] Acetaminophen [Tylenol] 975 mg PO TID PRN 02/23/16 [History] Bisacodyl [Dulcolax] 10 mg RC Q48H PRN 02/23/16 [History] Isosorbide MONOnitrate (24 HR) [Imdur] 45 mg PO DAILY 02/23/16 [History] Levothyroxine [Synthroid] 37.5 mcg PO DAILY 02/23/16 [History] Methyl Salicylate/Menthol [Arthritis Hot Pain Relief Crm] 1 appl TP BID PRN 08/03 [History] Simvastatin [Zocor] 20 mg PO HS 02/23/16 [History] Metoprolol XL (24 HR) Succ [Toprol Xl] 50 mg PO DAILY #30 tab.er.24h 02/25/16 [ Rx] Allergies/Adverse Reactions: Allergies acetaminophen [From Vicodin] Adverse Reaction (Verified 02/23/16 11:20) Rash Enoxaparin [From Lovenox] Adverse Reaction (Verified 02/23/16 11:20) Confusion hydrocodone [From Vicodin] Adverse Reaction (Verified 02/23/16 11:20) Rash Date of admission: 02/23/16 15:33 Primary care physician: [facility] Discharging clinician: Artem Kennedy Anticipated date of discharge: 02/25/16 - Patient Status Disposition: Home Health Service Condition: Good Overall status at discharge: patient is back to baseline - Discharge Instructions Instructions: Syncope (DC), Diabetes Mellitus Type 2 in Adults (DC) [facility] Care Provider[facility] - Additional Instructions: Take all medications as prescribed: Dose of home metoprolol changed from 75 mg twice a day to 50 mg once a day Follow-up through PCP (rob team at [facility]) in 1-2 weeks as follow-up of hospital stay Recommend following up with cardiology to discuss possible cardiac etiology of syncope Return to emergency department if development of chest pain, shortness of breath , unexplained bleeding, or additional syncopal events - Diet and Activity Activity: as per physical therapy Diet: low fat, low cholesterol Interval History: Patient reports no continued symptoms. He has been comfortable for the duration of his stay in the hospital without any chest pain, shortness of breath , lightheadedness, loss of consciousness, or dizziness. We discussed his options for discharge and that it was recommended that he go to a shelter facility/extended care facility for additional rehabilitation given his lower extremity weakness, the patient refused this would prefer to go home with home health, possibly with follow-up at the [facility] for continued rehabilitation. Hospital course: Mr. Lewis is a 80 year old male who presented to [place] with chief concern: Witnessed syncopal episode Comorbidities would include: CHF, COPD, prior DVT, diabetes mellitus, seizure disorder, and hypothyroidism @ Hospital course: Mr. Lewis was brought to [facility] from the [facility] urgent clinic/ER after suffering a syncopal episode on 02/23/16. During this episode he was unresponsive, but reports no incontinence, tongue biting, or tonic/clonic movements. He was asymptomatic at time of presentation [facility]. Once admitted, he underwent echocardiogram, bilateral carotid Dopplers, was continually monitored via telemetry. He was initially bradycardic and his home metoprolol was held. Although patient remained asymptomatic, he appeared to have numerous PVCs on telemetry. Metoprolol succinate was once again started, but decreased dosage from when he is receiving before. With a negative workup and patient remaining asymptomatic he is safe for discharge with follow-up with his PCP (rob team at the [facility]) and cardiology to address his PVCs. It was recommended by physical therapy that he be discharged to a shelter facility worse. Have continued rehabilitation for his lower extremity weakness , the patient refused ECF and instead states he prefer home health for follow- up with the [facility] for continued rehabilitation. @ At time of discharge, patient was clinically improved, hemodynamically stable, progressing to baseline, and agreeable with plan of care. Patient was advised to seek immediate medical attention for any new or worsening symptoms including but not limited to fever, chills, chest pain, chest pressure, dyspnea, cough, abdominal pain, nausea, vomiting, diarrhea, bloody stool, urine and the patient voiced understanding. Patient will follow-up with primary care physician: - Time Spent with Patient Total time spent providing and/or coordinating discharge services: - Constitutional Vitals: Temp Pulse Resp BP Pulse Ox 97.6 F 77 16 133/71 97 02/25/16 10:48 02/25/16 10:48 02/25/16 10:48 02/25/16 10:48 02/25/16 10:48 General appearance: Present: cooperative, A&O X 3, pleasant, no acute distress, answers questions appropriately Exam: General: Cooperative, pleasant, no acute distress, alert and oriented 3, answers questions appropriately Head: Normocephalic, atraumatic Eye: Conjunctiva pink, sclera anicteric, EOMI, PERRL Neck: Supple, trachea midline Respiratory: No accessory muscle usage, clear to auscultation bilaterally, no wheezes/rhonchi/rales appreciated Cardiovascular: Regular rate and rhythm, S1 and S2 present, no murmurs/rubs/ gallops/clicks appreciated GI/abdominal: Nondistended, nontender, soft, normal bowel sounds, no peritoneal signs Extremities: No calf tenderness, noncyanotic, no pedal edema appreciated, warm, lower extremity pulses palpable and symmetrical Neurological: Alert and oriented 3, no facial droop,deficits, no focal deficits Skin: Dry, intact, normal color - VTE Documentation of Mechanical Device: Intermittent pneumatic compression device <Blayne Shah - Last Filed: 02/25/16 16:15> Date of Encounter: 02/25/16 Date of admission: 02/23/16 15:33 Primary care physician: [facility]CP [facility] Hospital course: Mr. Lewis is a 80 year old male - Time Spent with Patient Total time spent providing and/or coordinating discharge services: - Constitutional Vitals: Temp Pulse Resp BP Pulse Ox 97.6 F 77 16 133/71 97 02/25/16 10:48 02/25/16 10:48 02/25/16 10:48 02/25/16 10:48 02/25/16 10:48 - Attending Attestation I examined this patient and my medical decision-making was reviewed with the PENSION ADVISER/PA/Advanced Practice Nurse/Resident Physician. I agree with the documented findings, disposition and treatment plan as described except to the extent set forth below. Patient admitted with syncope, currently stable. Echo findings noted. By mouth fluid intake encouraged. Patient declined discharge to extended care facility.
--- NOTE | 2016-02-25 12:40 | Physician Discharge Referral ---
<MarciaArtem - Last Filed: 02/25/16 12:39> Home Health/Hosp Referral Info Transfer to: Home Health Provider in Charge Post Discharge: PCP - Diagnosis (1) Syncope Priority: Primary Status: Acute (2) Seizure disorder Priority: Secondary Status: Chronic (3) Diabetes type 2, controlled Priority: Secondary Status: Acute (4) History of cerebrovascular accident Priority: Primary Status: Acute (5) CAD (coronary artery disease) Priority: Secondary Status: Acute (6) GERD (gastroesophageal reflux disease) Priority: Secondary Status: Acute (7) Hypothyroidism Priority: Secondary Status: Acute (8) Hypertension Priority: Secondary Status: Chronic (9) DVT prophylaxis Priority: Secondary Status: Acute - Respiratory Orders Smoking Cessation: Smoking cessation has been advised. For more information, call the [employer] Tobacco Quit Line at 1-325-YOEG-NOW. - Diet/Nutrition Diet/Nutrition Orders: Cardiac - Activity Activity Orders: Walker - Services Needed Following services are medically necessary services: Physical Therapy - Transfer Medications Prescriptions: Metoprolol XL (24 HR) Succ [Toprol Xl] 50 mg PO DAILY #30 tab.er.24h Home Medications: Aspirin 81 mg PO DAILY #0 10/23/14 [History] Cholecalciferol (Vitamin D3) [Vitamin D] 2,000 unit PO DAILY #0 10/23/14 [ History] Latanoprost [Xalatan] 1 drop BOTH EYES HS #0 10/23/14 [History] Phenytoin ER [Dilantin ER] 100 mg PO BID #0 10/23/14 [History] Ranitidine HCl [Acid Emergency Telecommunications Dispatcher] 150 mg PO DAILY #0 10/23/14 [History] Sennosides [Senna] 8.6 mg PO HS #0 10/23/14 [History] Brimonidine 0.2% [Alphagan] 1 drop BOTH EYES BID 03/27/15 [History] Ferrous Sulfate 325 mg PO DAILY 05/27/15 [History] Clopidogrel [Plavix] 75 mg PO DAILY #30 tablet 05/30/15 [Rx] Ranolazine [Ranexa] 500 mg PO BID #60 tab.er.12h 05/30/15 [Rx] Acetaminophen [Tylenol] 975 mg PO TID PRN 02/23/16 [History] Bisacodyl [Dulcolax] 10 mg RC Q48H PRN 02/23/16 [History] Isosorbide MONOnitrate (24 HR) [Imdur] 45 mg PO DAILY 02/23/16 [History] Levothyroxine [Synthroid] 37.5 mcg PO DAILY 02/23/16 [History] Methyl Salicylate/Menthol [Arthritis Hot Pain Relief Crm] 1 appl TP BID PRN 08/03 [History] Simvastatin [Zocor] 20 mg PO HS 02/23/16 [History] Metoprolol XL (24 HR) Succ [Toprol Xl] 50 mg PO DAILY #30 tab.er.24h 02/25/16 [ Rx] Allergies/Adverse Reactions: Allergies acetaminophen [From Vicodin] Adverse Reaction (Verified 02/23/16 11:20) Rash Enoxaparin [From Lovenox] Adverse Reaction (Verified 02/23/16 11:20) Confusion hydrocodone [From Vicodin] Adverse Reaction (Verified 02/23/16 11:20) Rash Certification: Further, I certify that my clinical findings support that this patient is homebound (i.e. absences from home require considerable and taxing effort and are for medical reasons or anabaptism services or infrequently or short duration when for other reasons) because: Homebound Reason: Patient requires assistance of a person or device to safely leave home Attestation: My signature below is to certify that this patient is under my care and that I, or nurse practitioner, or a physician's pathology assistant working with me, has a face-to -face encounter with this patient. <Blayne Shah - Last Filed: 02/25/16 16:16> - Respiratory Orders Smoking Cessation: Smoking cessation has been advised. For more information, call the [place] Tobacco Quit Line at 6-153-AWBP-NOW. Certification: Further, I certify that my clinical findings support that this patient is homebound (i.e. absences from home require considerable and taxing effort and are for medical reasons or anabaptism services or infrequently or short duration when for other reasons) because: Attestation: My signature below is to certify that this patient is under my care and that I, or nurse practitioner, or a physician's pathology assistant working with me, has a face-to -face encounter with this patient.
--- NOTE | 2016-02-26 12:02 | Electrocardiograph Report ---
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
== END 2016-02-25 16:30 | disposition home health service (06) | DRG 312 ==
LOC: EMEROO 11:03 → 3BNU 11:03 → SUATTDRO 15:33
PROVIDERS: ADMIT Nurse Practitioner Family; ATTEND Internal Medicine

== ENCOUNTER 2016-06-23 00:57 | Observation (INO) ==
--- NOTE | 2016-06-23 01:12 | Emergency Department Note ---
Disposition Clinical Impression: Chest pain Qualifiers: Chest pain type: unspecified Qualified Code(s): R07.9 - Chest pain, unspecified Disposition: Admitted As Inpatient Condition: Good [facility]errals: [facility]Primary Care Provider[facility] - Forms: ED Satisfaction Letter Time of Disposition: 02:01 Chest Pain HPI - General Chief Complaint: ED Chest Pain Stated Complaint: chest pain Time Seen by Provider: 06/23/16 00:59 Source: patient, EMS Mode of arrival: ambulatory Limitations: no limitations Vital Signs Reviewed: Yes Nursing Notes Reviewed: Yes - History of Present Illness HPI Narrative: 80-year-old male with history of hypertension and heart disease status post left heart catheter without stents about 10 years ago presents with retrosternal chest pressure that began about one hour prior to arrival. He states that it remitted after 2 nitroglycerin sublingual tablets. He states that this occurred around the time he laid down to bed. He denies any associated shortness of breath, radiation, diaphoresis, vomiting, GI or symptoms, abdominal pain, rashes or lower extremity swelling. He denies any calf tenderness. He is currently wearing a Holter monitor apparently for an episode of syncope while at the ID. Pt complaint: chest pain Severity scale (1-10): 0 - Related Data Home Medications Medication Instructions Recorded Confirmed Aspirin 81 mg PO DAILY #0 10/23/14 02/23/16 Cholecalciferol (Vitamin D3) 2,000 unit PO DAILY #0 10/23/14 02/23/16 [Vitamin D] Latanoprost [Xalatan] 1 drop BOTH EYES HS #0 10/23/14 02/23/16 Phenytoin ER [Dilantin ER] 100 mg PO BID #0 10/23/14 02/23/16 Ranitidine HCl [Acid Strategic Manager] 150 mg PO DAILY #0 10/23/14 02/23/16 Sennosides [Senna] 8.6 mg PO HS #0 10/23/14 02/23/16 Brimonidine 0.2% [Alphagan] 1 drop BOTH EYES BID 03/27/15 02/23/16 Ferrous Sulfate 325 mg PO DAILY 05/27/15 02/23/16 Acetaminophen [Tylenol] 975 mg PO TID PRN 02/23/16 02/23/16 Bisacodyl [Dulcolax] 10 mg RC Q48H PRN 02/23/16 02/23/16 Isosorbide MONOnitrate (24 HR) 45 mg PO DAILY 02/23/16 02/23/16 [Imdur] Levothyroxine [Synthroid] 37.5 mcg PO DAILY 02/23/16 02/23/16 Methyl Salicylate/Menthol 1 appl TP BID PRN 02/23/16 02/23/16 [Arthritis Hot Pain Relief Crm] Simvastatin [Zocor] 20 mg PO HS 02/23/16 02/23/16 Previous Rx's Medication Instructions Recorded Clopidogrel [Plavix] 75 mg PO DAILY #30 tablet 05/30/15 Ranolazine [Ranexa] 500 mg PO BID #60 tab.er.12h 05/30/15 Metoprolol XL (24 HR) Succ [Toprol 50 mg PO DAILY #30 tab.er.24h 02/25/16 Xl] Allergies Allergy/AdvReac Type Severity Reaction Status Date / Time acetaminophen [From Vicodin] AdvReac Rash Verified 02/23/16 11:20 Enoxaparin [From Lovenox] AdvReac Confusion Verified 02/23/16 11:20 hydrocodone [From Vicodin] AdvReac Rash Verified 02/23/16 11:20 All systems ED: reviewed and negative except as stated. Chest Pain PMH - Past Medical History Medical history: Reports: CHF, coronary artery disease, DVT, diabetes, GERD, hyperlipidemia, seizures, thyroid disease Surgical history: Reports: orthopedic, other, other Psychiatric history: Reports: no psych history - Social History Smoking Status: Former smoker Alcohol use: Reports: none Drug use: Reports: none Physical Exam - Head Head exam: atraumatic, normocephalic, normal inspection - Eye Eye exam: Present: normal appearance, PERRL, EOMI - ENT ENT exam: normal exam, normal oropharynx, mucous membranes moist - Neck Neck exam: Present: normal inspection, full ROM, trachea midline - Chest Chest inspection: Present: normal inspection, symmetric chest wall rise. Chest wall is nontender. - Respiratory Respiratory exam: Clear to auscultation bilaterally without wheezes rales or rhonchi Cardiovascular Cardiovascular exam: Present: regular rate, normal rhythm, normal heart sounds - Abdominal Exam Abdominal exam: Present: soft, Non-Tender. Absent: tenderness, distention, guarding, rebound, rigidity - Extremities Exam Extremities exam: Present: normal inspection, full ROM - Back Exam Back exam: Present: normal inspection, full ROM. Absent: tenderness, CVA tenderness (R), CVA tenderness (L) - Neurological Exam Neurological exam: Present: alert, oriented X3, CN II-XII intact - Psychiatric Psychiatric exam: Present: normal affect, normal mood - Skin Skin exam: Present: warm, dry, intact, normal color - General Limitations: no limitations General appearance: alert, in no apparent distress Course - Reevaluation(s) Reevaluation #1: Troponin is negative. Patient remains chest pain-free. Accepted by Dr. Krishna for chest pain. Time: 01:55 Vital Signs Temperature 97.6 F 06/23/16 01:05 Pulse Rate 76 06/23/16 01:05 Respiratory Rate 20 06/23/16 01:05 Blood Pressure 179/111 06/23/16 01:05 O2 Sat by Pulse Oximetry 99 06/23/16 01:05 Temperature 97.6 F 06/23/16 01:05 Pulse Rate 69 06/23/16 01:29 Respiratory Rate 16 06/23/16 01:29 Blood Pressure 182/92 06/23/16 01:29 O2 Sat by Pulse Oximetry 100 06/23/16 01:29 Oxygen Delivery Oxygen Delivery Room Air Chest Pain - Lab Data Result diagrams: 06/23/16 01:00 06/23/16 01:00 Lab Results 06/23/16 06/23/16 06/23/16 Range/Units 01:00 01:00 01:00 WBC 7.0 (4.3-11.1) K/mcL RBC 4.25 (4.19-5.50) M/mcL Hgb 12.5 L (12.9-16.9) g/dL Hct 38.4 (37.5-50.1) % MCV 90.4 (83.0-100.0) fL MCH 29.4 (28.0-33.3) pg MCHC 32.6 (31.6-35.5) g/dL RDW 13.1 (11.5-14.5) % Plt Count 162 (140-400) K/mcL MPV 11.1 (9.4-12.4) fL Immature Gran % 0.4 (0-4) % Seg Neutrophils % 61.1 % Lymphocytes % 26.9 % Monocytes % 9.0 % Eosinophils % 2.0 % Basophils % 0.6 % Neutrophils # 4.3 (1.6-8.9) K/mcL Lymphocytes # 1.9 (0.6-4.6) K/mcL Monocytes # 0.6 (0.0-1.3) K/mcL Eosinophils # 0.1 (0.0-0.6) K/mcL Basophils # 0.0 (0.0-0.2) K/mcL PT 12.3 H (9.4-12.1) Seconds INR 1.1 APTT 27.8 (26.0-36.0) Seconds Sodium 142 (136-145) mEq/L Potassium 4.5 (3.5-4.5) mEq/L Chloride 106 (98-109) mEq/L Carbon Dioxide 28 (19-29) mEq/L BUN 24 (8-26) mg/dL Creatinine 1.37 H (0.72-1.25) mg/dL Est GFR ( Amer) > 60 (> 60) Est GFR (Non-Af Amer) 50 L (> 60) BUN/Creatinine Ratio 18 (6-26) Glucose 115 H (70-99) mg/dL Calculated Osmolality 299 (280-300) Calcium 9.4 (8.6-10.8) mg/dL Phosphorus 2.8 (2.3-4.7) mg/dL Magnesium 2.1 (1.6-2.6) mg/dL Troponin I (0-0.03) ng/mL 06/23/16 Range/Units 01:00 WBC (4.3-11.1) K/mcL RBC (4.19-5.50) M/mcL Hgb (12.9-16.9) g/dL Hct (37.5-50.1) % MCV (83.0-100.0) fL MCH (28.0-33.3) pg MCHC (31.6-35.5) g/dL RDW (11.5-14.5) % Plt Count (140-400) K/mcL MPV (9.4-12.4) fL Immature Gran % (0-4) % Seg Neutrophils % % Lymphocytes % % Monocytes % % Eosinophils % % Basophils % % Neutrophils # (1.6-8.9) K/mcL Lymphocytes # (0.6-4.6) K/mcL Monocytes # (0.0-1.3) K/mcL Eosinophils # (0.0-0.6) K/mcL Basophils # (0.0-0.2) K/mcL PT (9.4-12.1) Seconds INR APTT (26.0-36.0) Seconds Sodium (136-145) mEq/L Potassium (3.5-4.5) mEq/L Chloride (98-109) mEq/L Carbon Dioxide (19-29) mEq/L BUN (8-26) mg/dL Creatinine (0.72-1.25) mg/dL Est GFR ( Amer) (> 60) Est GFR (Non-Af Amer) (> 60) BUN/Creatinine Ratio (6-26) Glucose (70-99) mg/dL Calculated Osmolality (280-300) Calcium (8.6-10.8) mg/dL Phosphorus (2.3-4.7) mg/dL Magnesium (1.6-2.6) mg/dL Troponin I 0.03 (0-0.03) ng/mL - EKG Data EKG attestation: Yes I reviewed and interpreted this EKG. EKG results narrative: Normal sinus rhythm at 74 with frequent PVCs. No ST elevation or depression. No T-wave inversions. There is T-wave flattening in leads 2 and 3. No significant change when compared with 02/23/2016. Attestation Statement - Attestation Attestation: I examined this patient and my medical decision-making was reviewed with the CONTROL CLERK/PA/Advanced Practice Nurse/Resident Physician. I agree with the documented findings, disposition and treatment plan as described except to the extent set forth below. Patient emergency department with chest pain. Describes it as substernal pressure. Nonradiating. Nausea and diaphoresis. Resolved after 2 nitroglycerin. Patient states he has coronary disease. He had a catheter 10 years ago but they could not stent his blockage. Patient also has a Holter monitor in place but he is unsure why it is there. On exam he is in no acute distress. Pleasant conversant. Lungs clear. Heart regular without murmur. Plan. Patient is pain-free. Cardiac workup with admission.
[2016-06-23] MEDS ORDERED: Aspirin 81 MG TAB.CHEW PO ONE (01:17)
[2016-06-23 01:20] LABS: Basophils % 0.6 %; Eosinophils # 0.1 K/mcL (0.0-0.6); Hematocrit 38.4 % (37.5-50.1); Hemoglobin 12.5 g/dL (12.9-16.9); Immature Granulocytes % 0.4 % (0-4); Lymphocytes # 1.9 K/mcL (0.6-4.6); Lymphocytes % 26.9 %; Mean Corpuscular HGB Conc 32.6 g/dL (31.6-35.5); Mean Corpuscular Hemoglobin 29.4 pg (28.0-33.3); Mean Corpuscular Volume 90.4 fL (83.0-100.0); Mean Platelet Volume 11.1 fL (9.4-12.4); Monocytes # 0.6 K/mcL (0.0-1.3); Neutrophils # 4.3 K/mcL (1.6-8.9); Platelet Count 162 K/mcL (140-400); Red Blood Count 4.25 M/mcL (4.19-5.50); Red Cell Distribution Width 13.1 % (11.5-14.5); Segmented Neutrophils % 61.1 %
[2016-06-23 01:26] LABS: INR 1.1; Prothrombin Time 12.3 Seconds (9.4-12.1)
[2016-06-23 01:29] LABS: Activated Partial Thrombo Time 27.8 Seconds (26.0-36.0)
[2016-06-23 01:33] LABS: BUN/Creatinine Ratio 18 (6-26); Blood Urea Nitrogen 24 mg/dL (8-26); Calcium 9.4 mg/dL (8.6-10.8); Carbon Dioxide 28 mEq/L (19-29); Chloride 106 mEq/L (98-109); Glucose 115 mg/dL (70-99); Magnesium 2.1 mg/dL (1.6-2.6); Osmolality,Calculated 299 (280-300); Phosphorous 2.8 mg/dL (2.3-4.7); Potassium 4.5 mEq/L (3.5-4.5); Sodium 142 mEq/L (136-145); eGFR For African Americans > 60 (> 60); eGFR For Non-African Americans 50 (> 60)
[2016-06-23] MEDS ORDERED: Nitroglycerin 0.4 MG TAB.SUBL SL PRN (02:46)
[2016-06-23] MEDS ORDERED: Sennosides 8.6 MG TABLET PO PRN (02:46)
[2016-06-23] MEDS ORDERED: Bisacodyl 10 MG RECTAL SUPPOSITORY RC PRN (02:46)
--- NOTE | 2016-06-23 03:10 | Internal Med History&Physical ---
Date of Encounter: 06/23/16 Time of Encounter: 02:00 Assessment and Plan (1) CAD (coronary artery disease) Current visit: No Status: Acute Patient has history of CAD. He had angina. Previous director of collections consult note reviewed. Patient has multiple vessel CAD unamenable for revascularization. Recommend medical management. - We will keep patient in telemetry, continuous cardiac monitoring. - track 3 sets of troponin - Increase imudur dose from 45 mg daily to 60 mg daily. - No stress test because patient has established CAD, unamenable for revascularization, per cardiology consult recommendation previously (05/28/2015). Qualifiers: Coronary Disease-Associated Artery/Lesion type: [place] artery [place] vs. transplanted heart: [place] heart Associated angina: with unspecified angina Qualified Code(s): I25.119 - Atherosclerotic heart disease of [place] coronary artery with unspecified angina pectoris (2) Chest pain Current visit: Yes Status: Acute As mentioned above. Qualifiers: Chest pain type: chest pain due to myocardial ischemia Ischemic chest pain type: stable angina pectoris Qualified Code(s): I20.8 - Other forms of angina pectoris (3) Seizure disorder Current visit: No Status: Chronic Stable, continue home medication phenytoin 100 mg twice a day. (4) Hypertension Current visit: No Status: Chronic patient's blood pressure is high in emergency room. He told me he did not take his morning meds. We will resume regular medication and monitor BP. Patient was given metoprolol 50 mg by mouth once by ER doctor. Qualifiers: Hypertension type: essential hypertension Qualified Code(s): I10 - Essential (primary) hypertension (5) Diabetes type 2, controlled Current visit: No Status: Acute Patient is on diet control. Not on any medications at home. Will continue diet control. Qualifiers: Diabetes mellitus complication status: without complication Diabetes mellitus detention insulin use: without terminologist use Qualified Code(s): E11.9 - Type 2 diabetes mellitus without complications (6) Hypothyroidism Current visit: No Status: Acute Continue home medication Qualifiers: Hypothyroidism type: unspecified Qualified Code(s): E03.9 - Hypothyroidism , unspecified (7) DVT prophylaxis Current visit: No Status: Acute EPCD. Internal Medicine - H&P: HPI Chief complaint: Chest pain Admitted From: Home Plans for Post Hospital Care: Home History of present illness: Mr. Lewis is a 80 year old male with known history of CAD present to ER for chest pain. Patient said pain started this evening 10:00 PM, located on the left chest, throbbing and pressure like, no radiation. Patient has shortness of breath when he had pain, with mild nausea. He denies diaphoresis. The pain lasted about 10-15 minutes, resolved after patient takes sublingual nitroglycerin. Patient has chronic angina but pain-free since last November or December. Patient is a wheelchair-bound at home, I discussed with family regarding social need, they said patient will go home and do not need social service at this point. I discussed the CODE STATUS with patient. He is full code. Past Med Surg Social Fam HX - Past Medical History Medical history: CHF, coronary artery disease, DVT, diabetes, GERD, hyperlipidemia, seizures, thyroid disease Psychiatric history: no psych history - Past Surgical History Surgical History: orthopedic, other, other - Social History Smoking Status: Former smoker Smokeless Tobacco Status: No Alcohol use: none Drug use: none - Family History Father Living Status: Mother Living Status: Hx Family Cancer: Yes Internal Medicine - H&P: Meds Aspirin 81 mg PO DAILY #0 10/23/14 [History] Latanoprost [Xalatan] 1 drop BOTH EYES HS #0 10/23/14 [History] Phenytoin ER [Dilantin ER] 100 mg PO BID #0 10/23/14 [History] Ranitidine HCl [Acid Military Professional] 150 mg PO DAILY #0 10/23/14 [History] Sennosides [Senna] 8.6 mg PO HS PRN #0 10/23/14 [History] Brimonidine 0.2% [Alphagan] 1 drop BOTH EYES BID 03/27/15 [History] Clopidogrel [Plavix] 75 mg PO DAILY #30 tablet 05/30/15 [Rx] Ranolazine [Ranexa] 500 mg PO BID #60 tab.er.12h 05/30/15 [Rx] Acetaminophen [Tylenol] 975 mg PO TID PRN 02/23/16 [History] Bisacodyl [Dulcolax] 10 mg RC Q48H PRN 02/23/16 [History] Isosorbide MONOnitrate (24 HR) [Imdur] 45 mg PO DAILY 02/23/16 [History] Levothyroxine [Synthroid] 37.5 mcg PO DAILY 02/23/16 [History] Methyl Salicylate/Menthol [Arthritis Hot Pain Relief Crm] 1 appl TP BID PRN 08/03 [History] Simvastatin [Zocor] 20 mg PO HS 02/23/16 [History] Lisinopril [Zestril] 100 mg PO BID 06/23/16 [History] Metoprolol XL (24 HR) Succ [Toprol Xl] 25 mg PO DAILY 06/23/16 [History] Nitroglycerin [Nitrostat] 0.4 mg SL PRN PRN 06/23/16 [History] Allergies acetaminophen [From Vicodin] Adverse Reaction (Verified 02/23/16 11:20) Rash Enoxaparin [From Lovenox] Adverse Reaction (Verified 02/23/16 11:20) Confusion hydrocodone [From Vicodin] Adverse Reaction (Verified 02/23/16 11:20) Rash All Systems PM: A 10-system review of systems was performed and is negative for pertinent findings except as documented above in the HPI. - Constitutional Vitals: Temp Pulse Resp BP Pulse Ox 97.6 F 69 16 182/92 100 06/23/16 01:05 06/23/16 01:29 06/23/16 01:29 06/23/16 01:29 06/23/16 01:29 General appearance: Present: A&O X 3, no acute distress, answers questions appropriately - Head Head exam: Present: atraumatic, normocephalic - Eye Eye exam: Present: PERRL, conjuntiva pink, sclera anicteric Pupils: Present: PERRL - Neck Neck exam general surgery: Present: supple, trachea midline. Absent: lymphadenopathy - Respiratory Respiratory exam: Present: CTAB. Absent: accessory muscle use, rales, rhonchi, wheezes - Cardiovascular Cardiovascular exam: Present: RRR, +S1, +S2. Absent: diastolic murmur, gallop, rubs, systolic murmur - GI/Abdominal GI/Abdominal exam: Present: normal bowel sounds, soft, no peritoneal signs. Absent: distended, tenderness - Extremities Exam Extremities exam: Present: warm, radial pulses palpable and symetrical. Absent : calf tenderness, cyanotic, pedal edema - Neurological Exam Neurological exam: Present: CN II-XII intact, oriented X3, no focal deficits. Absent: pronater drift, facial droop, speech deficit - Skin Skin exam: Present: dry, intact Internal Med - H&P Results - Labs CBC & Chem 7: 06/23/16 01:00 06/23/16 01:00
[2016-06-23] MEDS ORDERED: Levothyroxine 25 MCG TABLET PO SCH (06:30)
[2016-06-23] MEDS ORDERED: Isosorbide MONOnitrate (24 HR) 30 MG TAB.ER.24H PO SCH (09:00)
[2016-06-23] MEDS ORDERED: Famotidine 20 MG TABLET PO SCH (09:00)
[2016-06-23] MEDS ORDERED: Isosorbide MONOnitrate (24 HR) 60 MG TAB.ER.24H PO SCH (09:00)
[2016-06-23] MEDS ORDERED: Ranolazine 500 MG TAB.ER.12H PO SCH (09:00)
[2016-06-23] MEDS ORDERED: Aspirin 81 MG TAB.CHEW PO SCH (09:00)
[2016-06-23] MEDS ORDERED: Metoprolol XL (24 HR) Succ 25 MG TAB.ER.24H PO SCH (09:00)
[2016-06-23 10:53] VITALS: BP 126/71
--- NOTE | 2016-06-23 12:22 | Discharge Summary ---
Date of Encounter: 06/23/16 Time of Encounter: 11:40 - Discharge Diagnosis (1) Chest pain Priority: Primary Status: Acute Qualifiers: Chest pain type: precordial pain Qualified Code(s): R07.2 - Precordial pain (2) Diabetes mellitus Priority: Secondary Status: Chronic Qualifiers: Diabetes mellitus type: type 2 Diabetes mellitus complication status: with kidney complications Diabetes mellitus complication detail: with chronic kidney disease Diabetes mellitus long term care administrator insulin use: without long term care administrator use Chronic kidney disease stage: stage 3 (moderate) Qualified Code(s): E11.22 - Type 2 diabetes mellitus with diabetic chronic kidney disease; N18.3 - Chronic kidney disease, stage 3 (moderate) (3) CKD (chronic kidney disease) Priority: Secondary Status: Chronic Qualifiers: Chronic kidney disease stage: stage 3 (moderate) Qualified Code(s): N18.3 - Chronic kidney disease, stage 3 (moderate) (4) Hypertension Priority: Secondary Status: Chronic Qualifiers: Hypertension type: essential hypertension Qualified Code(s): I10 - Essential (primary) hypertension (5) Hyperlipidemia Priority: Secondary Status: Chronic Qualifiers: Hyperlipidemia type: unspecified Qualified Code(s): E78.5 - Hyperlipidemia , unspecified (6) CAD (coronary artery disease) Priority: Secondary Status: Chronic Qualifiers: Coronary Disease-Associated Artery/Lesion type: [place] artery [place] vs. transplanted heart: [place] heart Associated angina: with stable angina Qualified Code(s): I25.118 - Atherosclerotic heart disease of [place] coronary artery with other forms of angina pectoris (7) Hypothyroidism Priority: Secondary Status: Chronic Qualifiers: Hypothyroidism type: unspecified Qualified Code(s): E03.9 - Hypothyroidism , unspecified - Discharge Medications Prescriptions: Isosorbide MONOnitrate (24 HR) [Imdur] 60 mg PO DAILY #30 tab.er.24h Home Medications: Aspirin 81 mg PO DAILY #0 10/23/14 [History] Latanoprost [Xalatan] 1 drop BOTH EYES HS #0 10/23/14 [History] Phenytoin ER [Dilantin ER] 100 mg PO BID #0 10/23/14 [History] Ranitidine HCl [Acid [place] Operator] 150 mg PO DAILY #0 10/23/14 [History] Sennosides [Senna] 8.6 mg PO HS PRN #0 10/23/14 [History] Brimonidine 0.2% [Alphagan] 1 drop BOTH EYES BID 03/27/15 [History] Clopidogrel [Plavix] 75 mg PO DAILY #30 tablet 05/30/15 [Rx] Ranolazine [Ranexa] 500 mg PO BID #60 tab.er.12h 05/30/15 [Rx] Acetaminophen [Tylenol] 975 mg PO TID PRN 02/23/16 [History] Bisacodyl [Dulcolax] 10 mg RC Q48H PRN 02/23/16 [History] Levothyroxine [Synthroid] 37.5 mcg PO DAILY 02/23/16 [History] Methyl Salicylate/Menthol [Arthritis Hot Pain Relief Crm] 1 appl TP BID PRN 08/03 [History] Simvastatin [Zocor] 20 mg PO HS 02/23/16 [History] Isosorbide MONOnitrate (24 HR) [Imdur] 60 mg PO DAILY #30 tab.er.24h 06/23/16 [ Rx] Lisinopril [Zestril] 30 mg PO DAILY tablet 06/23/16 [Rx] Metoprolol XL (24 HR) Succ [Toprol Xl] 25 mg PO DAILY 06/23/16 [History] Nitroglycerin [Nitrostat] 0.4 mg SL PRN PRN 06/23/16 [History] Allergies/Adverse Reactions: Allergies acetaminophen [From Vicodin] Adverse Reaction (Verified 02/23/16 11:20) Rash Enoxaparin [From Lovenox] Adverse Reaction (Verified 02/23/16 11:20) Confusion hydrocodone [From Vicodin] Adverse Reaction (Verified 02/23/16 11:20) Rash Date of admission: 06/23/16 02:06 [facility] Discharging clinician: Hilda Nelson Anticipated date of discharge: 06/23/16 - Patient Status Disposition: Home, Self-Care Condition: Good Functional capacity at discharge: uses cane/walker Overall status at discharge: patient is progressing back to baseline - Discharge Instructions Instructions: Isosorbide Mononitrate (By mouth), Chest Pain (DC) Follow Up With: [facility] [Primary Care Provider] - (Please call to schedule hospital follow up appointment.) Additional Instructions: F/up with PCP in 1-2 weeks - Diet and Activity Activity: resume usual activities as tolerated Diet: diabetic diet, low fat, low cholesterol, low salt diet Hospital course: Mr. Lewis is a 80 year old male with the above medical problems who was admitted with retrosternal chest pain. Patient was noted to have uncontrolled hypertension at the time of admission along with mild troponin elevation, with no new EKG changes. Previous records indicate that patient has diffuse coronary disease, not amenable to revascularization and he is recommended maximal medical therapy. His blood pressure today is better controlled with resumption of his home medications and the dose of his Imdur is being increased which would also help with his chest pain. Serial troponins remained adynamic and flat, and this is likely due to demand ischemia and uncontrolled blood pressure rather than ACS. He is chest pain-free today and is feeling well, hemodynamically stable and is medically stable for discharge with outpatient cardiology follow-up. - Time Spent with Patient Total time spent providing and/or coordinating discharge services: Greater than 30 minutes (45 min) - Constitutional Vitals: Temp Pulse Resp BP Pulse Ox 97.8 F 54 16 126/71 100 06/23/16 10:53 06/23/16 10:53 06/23/16 10:53 06/23/16 10:53 06/23/16 10:53 General appearance: Present: A&O X 3, answers questions appropriately - Respiratory Respiratory exam: Present: CTAB. Absent: accessory muscle use, rales, rhonchi, wheezes - Cardiovascular Cardiovascular exam: Present: RRR, +S1, +S2. Absent: diastolic murmur, gallop, rubs, systolic murmur - VTE Documentation of Mechanical Device: Intermittent pneumatic compression device
--- NOTE | 2016-06-23 18:04 | Electrocardiograph Report ---
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
[2016-06-23] MEDS ORDERED: Latanoprost 2.5 ML BOTTLE BOTH EYES SCH (21:00)
--- NOTE | 2016-06-24 17:08 | Electrocardiograph Report ---
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
== END 2016-06-23 14:03 | disposition home or self-care (01) ==
LOC: EMEROO 00:57 → 3BNU 00:57 → SUATTDRO 02:06 → 3BNU 02:48
PROVIDERS: ADMIT Internal Medicine; ATTEND Internal Medicine